=== PATIENT | female | born 2000 | race African-American/Black ===

== ENCOUNTER 2021-07-16 15:53 | Emergency (ER) | payer OTHER ==
[2021-07-16 16:15] VITALS: BP 138/84; PULSE 74; TEMP 97.9; BMI 26.9
[2021-07-16] MEDS ORDERED: DEXAMETHASONE SOD PHOSPHATE 10 MG/1 ML VIAL IVPUSH ONE (16:32)
[2021-07-16] MEDS ORDERED: KETOROLAC TROMETHAMINE 30 MG/1 ML VIAL IVPUSH ONE (16:32)
[2021-07-16] MEDS ORDERED: DEXAMETHASONE SOD PHOSPHATE 10 MG/1 ML VIAL ONE (16:34)
[2021-07-16] MEDS ORDERED: KETOROLAC TROMETHAMINE 30 MG/1 ML VIAL ONE (16:34)
[2021-07-16 17:18] LABS: THROAT:GRP A STREP NOT DETECTED (NOTDETECTED)
[2021-07-18 10:09] LABS: SARS-CoV-2 NAA Detected (Not Detected)
== END 2021-07-16 17:50 | disposition home or self-care (01) ==
LOC: JER 15:53 → JERFT 15:53
PROC: 3E033GC Introduction of Other Therapeutic Substance into Peripheral Vein, Percutaneous Approach (ICD-10-PCS; principal; 2021-07-16)
DX: J02.9 Acute pharyngitis, unspecified (principal)
CPT/HCPCS: 36415; 86308; 87651; 99284-25; C9803-CS; J1100; U0003; U0005

== ENCOUNTER 2023-10-18 11:33 | Emergency (ER) | payer OTHER ==
[2023-10-18 11:40] VITALS: BP 133/83; PULSE 73; RESP 18; TEMP 98.5; BMI 28.3
[2023-10-18] MEDS ORDERED: diphenhydrAMINE HCL 25 MG CAPSULE (FP) PO ONE (12:13)
[2023-10-18] MEDS: diphenhydrAMINE HCL 50 MG CAPSULE PO ONE (12:15)
== END 2023-10-18 12:33 | disposition home or self-care (01) ==
LOC: JERFT 11:33
DX: R20.2 Paresthesia of skin (principal); K13.0 Diseases of lips; T78.1XXA Other adverse food reactions, not elsewhere classified, initial encounter
CPT/HCPCS: 99283-25